=== PATIENT | male | born 1980 ===

== ENCOUNTER 2016-09-29 09:56 | Observation (INO) | payer MEDICAID, OTHER ==
[2016-09-29] MEDS ORDERED: Iohexol 240 (50 ml) PO STA (10:56)
--- NOTE | 2016-09-29 11:12 | C.PDOC ---
History Of Present Illness 36 y/o male presents to ED with complaints of RUQ pain for 2 days. Patient had a Hernia Surgery 2 years ago and had no discomfort until 2 days ago. Patient reports associated N/V/D and pain worsen after eating. Patient denies fever, chills, cp, sob, urinary symptoms or any other complaints. Time Seen by Provider: 09/29/16 10:07 Chief Complaint (Nursing): Abdominal Pain History Per: Patient History/Exam Limitations: no limitations Onset/Duration Of Symptoms: Days Current Symptoms Are (Timing): Still Present Location Of Pain/Discomfort: RUQ Associated Symptoms: Nausea, Vomiting, Diarrhea. denies: Fever, Chills Exacerbating Factors: Food Past Medical History Reviewed: Historical Data, Nursing Documentation, Vital Signs Vital Signs: Last Vital Signs Temp 98.2 F 09/29/16 15:23 Pulse 80 09/29/16 15:23 Resp 16 09/29/16 15:23 BP 128/70 09/29/16 15:23 Pulse Ox 100 09/29/16 15:23 - Medical History PMH: No Chronic Diseases Other Surgeries: hernia surgery Family History: States: No Known Family Hx - Social History Hx Alcohol Use: No Hx Substance Use: No - Immunization History Hx Tetanus Toxoid Vaccination: No Hx Influenza Vaccination: No Hx Pneumococcal Vaccination: No Review Of Systems Except As Marked, All Systems Reviewed And Found Negative. Constitutional: Negative for: Fever, Chills Cardiovascular: Negative for: Chest Pain Respiratory: Negative for: Shortness of Breath Gastrointestinal: Positive for: Nausea, Vomiting, Abdominal Pain, Diarrhea Genitourinary: Negative for: Dysuria, Frequency Musculoskeletal: Negative for: Back Pain Skin: Negative for: Rash Physical Exam - Physical Exam Appears: Non-toxic, No Acute Distress Skin: Normal Color, Warm Head: Atraumatic, Normacephalic Eye(s): bilateral: Normal Inspection Oral Mucosa: Moist Neck: Normal ROM, Supple Cardiovascular: Rhythm Regular, No Murmur Respiratory: Normal Breath Sounds, No Rales, No Rhonchi, No Wheezing Gastrointestinal/Abdominal: Soft, Tenderness (RUQ Mild Tenderness), No Guarding , No Rebound, Other (Healed surgical scars to the mid abdomen) Back: No CVA Tenderness Extremity: Normal ROM, Capillary Refill (<2 seconds), No Swelling Neurological/Psych: Oriented x3, Normal Speech, Normal Motor Gait: Steady ED Course And Treatment - Laboratory Results Result Diagrams: 09/29/16 11:30 09/29/16 11:30 O2 Sat by Pulse Oximetry: 95 (RA) Pulse Ox Interpretation: Normal ED OBSERVATION Discharge: Yes Date of observation admission: 09/29/16 Time of observation admission: 11:30 - Observation admission statement Patient is being placed in observation because:: abdominal pain and r/o incarcerated hernia - Goals of Observation Goals of observation are:: monitoring and r/o acute abdomen - Progress Note Progress Note: 09/29/16 12:24 On re-exam, the patient is resting comfortably. Abdomen feels better. Abdomen remains soft with normal bowel sounds. 09/29/16 15:07 CT scan reveals colitis. Results were discussed with the patient. On re-exam, the patient reports improvement of symptoms. Lungs are CTA, heart is RRR, abdomen is soft, non-tender and patient is tolerating Porter. Ambulatory in the ED with steady gait. Follow up with the medical doctor within 1-2 days. Return if worsened. 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 - Scribe Statement The provider has reviewed the documentation as recorded by the Joseph Mejia All medical record entries made by the Joseph were at my direction and personally dictated by me. I have reviewed the chart and agree that the record accurately reflects my personal performance of the history, physical exam, medical decision making, and the department course for this patient. I have also personally directed, reviewed, and agree with the discharge instructions and disposition.
[2016-09-29] MEDS ORDERED: Iohexol 240 (50 ml) ONE (11:14)
[2016-09-29] MEDS ORDERED: Sodium Chloride 0.9% 1,000 ML ONE (11:15)
[2016-09-29 11:33] LABS: BASO # 0.1 K/uL (0.0-0.2); BASO % 1.1 % (0.0-2.0); EOS # 0.1 K/uL (0.0-0.7); EOS % 0.8 % (0.0-4.0); HEMATOCRIT 45.6 % (35.0-51.0); LYMPH # 2.1 K/uL (1.0-4.3); LYMPH % 22.1 % (20.0-40.0); MEAN CELL VOLUME 89.7 fL (80.0-94.0); MEAN CORPUSCULAR HEMOGLOBIN 29.1 pg (27.0-31.0); MEAN CORPUSCULAR HGB CONC 32.5 g/dL (33.0-37.0); MEAN PLATELET VOLUME 7.7 fL (7.2-11.7); MONO # 1.3 K/uL (0.0-0.8); MONO % 13.7 % (0.0-10.0); NRBC % 0.1 % (0.0-2.0); RED CELL DISTRIBUTION WIDTH 14.5 % (11.5-14.5); WHITE BLOOD COUNT 9.5 K/uL (4.8-10.8)
[2016-09-29 11:41] LABS: CHLORIDE 107 mmol/L (98-107)
[2016-09-29 11:42] LABS: POTASSIUM 4.4 mmol/L (3.6-5.2); SODIUM 142 mmol/L (132-148)
[2016-09-29 11:44] LABS: AST/SGOT 31 U/L (17-59); BILIRUBIN,TOTAL 0.5 mg/dL (0.2-1.3); CARBON DIOXIDE 26 mmol/L (22-30); GFR AFRICAN-AMERICAN > 60; TOTAL PROTEIN 7.7 g/dL (6.3-8.3)
[2016-09-29 11:45] LABS: ALKALINE PHOSPHATASE 85 U/L (38-126); ALT/SGPT 27 U/L (21-72); BLOOD UREA NITROGEN 11 mg/dL (9-20); CALCIUM 8.6 mg/dl (8.6-10.4); GLUCOSE,RANDOM 89 mg/dL (75-110)
[2016-09-29] MEDS ORDERED: Iodixanol 320 MG/ML 100 ML BOTTLE IV ONE (13:47)
--- NOTE | 2016-09-29 14:43 | CT ---
PROCEDURE: CT scan abdomen and pelvis dated 09/29/2016 HISTORY: abd pain COMPARISON: None. TECHNIQUE: Contiguous axial images of the abdomen and pelvis performed following oral and intravenous injection of approximately 100 cc Visipaque 320 contrast material. . Additional 2 dimensional sagittal and coronal reformats generated. Radiation dose: Total exam DLP = 1132.68 mGy-cm. This CT exam was performed using one or more of the following dose reduction techniques: Automated exposure control, adjustment of the mA and/or kV according to patient size, and/or use of iterative reconstruction technique. FINDINGS: LOWER THORAX: The spleen is diminutive and LIVER: Liver is upper limits of normal measuring nearly 18 cm in CC dimension. Mild fatty hepatic infiltration. GALLBLADDER AND BILE DUCTS: Unremarkable. PANCREAS: Visualized portions of the pancreas appear grossly unremarkable without mass collection or calcification. No significant pancreatic ductal dilatation. SPLEEN: Spleen is somewhat diminutive and this exhibits a lobular/nodular contour nonspecific. ADRENALS: Unremarkable. KIDNEYS AND URETERS: Kidneys exhibit relatively symmetric nephrograms. No evidence of nephrolithiasis or hydronephrosis. No obvious renal mass or collection. . BLADDER: Urinary bladder is incompletely distended which may in part account for slight thick-walled appearance. . Muscular hypertrophy may contribute. REPRODUCTIVE: Few tiny scattered densities throughout the prostate gland may represent early calcification formation. . APPENDIX: Normal-appearing appendix best seen on axial image number [id number]. No periappendiceal inflammatory changes. BOWEL: Evaluation of the bowel is limited due to incomplete opacification. As mentioned above, there is small hiatal hernia. Slight wall thickening of the distal esophagus likely due to protrusion of gastric mucosa. Esophagitis not excluded. Stomach is distended with oral contrast material. Visualized loops of small bowel exhibit normal contour and caliber. No evidence acute mechanical small bowel obstruction. Oral contrast material has extended into the colon to the level of the mid proximal/mid descending colon. There is mild wall thickening of the two ileum. . There appears to be mild wall thickening of the distal ascending, transverse and good portion of the descending colon suggesting a nonspecific colitis. Clinical correlation is recommended. No evidence of free intraperitoneal air. Appears to be a few scattered colonic diverticula as well along descending and proximal sigmoid colon. PERITONEUM: Unremarkable. No fluid collection. No free air. LYMPH NODES: There are multiple small retroperitoneal lymph nodes nonspecific. VASCULATURE: No evidence of abdominal aortic aneurysm BONES: Minor multilevel degenerative spondylosis of the lower thoracic and lumbar spine. OTHER FINDINGS: None. IMPRESSION: Impression: Findings are consistent with mild diffuse colitis nonspecific however rule out inflammatory versus infectious etiology. No evidence of acute appendicitis. Borderline hepatomegaly with mild fatty hepatic infiltration. Findings discussed with emergency room MICHELLE Funes at approximately 2:39 a.m. with written down and read back verification. Spleen is diminutive in size with somewhat lobulated nodular contour. The finding is of uncertain etiology though could represent developmental abnormality however rule out sequela of ischemia, old trauma or infection. There are multiple small retroperitoneal lymph nodes nonspecific.
[2016-09-29 15:24] VITALS: BP 128/70; PULSE 80; RESP 16; TEMP 98.2
[2016-09-29 17:07] VITALS: O2SAT 95
== END 2016-09-29 15:10 | disposition home or self-care (01) ==
LOC: C.ER 09:56 → C.9OBSV 12:23
PROVIDERS: ADMIT Student in an Organized Health Care Education/Training Program; ATTEND Student in an Organized Health Care Education/Training Program
DX: K52.9 Noninfective gastroenteritis and colitis, unspecified (principal)
CPT/HCPCS: 74177; 80053; 83690; 85025; 96374; 99285; G0378; J1885; J2270; J2405; Q9966; Q9967

== ENCOUNTER 2017-04-18 23:58 | Inpatient (IN) | payer MEDICAID, OTHER ==
--- NOTE | 2017-04-19 01:05 | C.PDOC ---
History Of Present Illness pt presents with diffuse chest wall pain, worsening with movement and deep inspiration since around 12-1 pm. denies any trauma., Speaking in complete sentences. Dull, aching pain. No f/c/n/v Time Seen by Provider: 04/19/17 01:05 Chief Complaint (Nursing): Chest Pain History Per: Patient, Family History/Exam Limitations: no limitations Onset/Duration Of Symptoms: Hrs (12), Waxing/Waning Current Symptoms Are (Timing): Still Present Context: Other Severity: Moderate Pain Scale Rating Of: 5 Quality: Burning, Aching Associated Symptoms: denies: Nausea, Dyspnea Exacerbating Factors: Turning, Movement, Deep Breathing Alleviating Factors: None Recent travel outside of the [place]: No Additional History Per: Family Past Medical History Reviewed: Historical Data, Nursing Documentation, Vital Signs Vital Signs: Last Vital Signs Temp 98.6 F 04/19/17 02:58 Pulse 96 H 04/19/17 03:20 Resp 16 04/19/17 03:20 BP 133/58 L 04/19/17 03:20 Pulse Ox 95 04/19/17 03:20 - Medical History PMH: HTN Family History: States: No Known Family Hx - Social History Hx Alcohol Use: Yes Hx Substance Use: No - Immunization History Hx Tetanus Toxoid Vaccination: No Hx Influenza Vaccination: No Hx Pneumococcal Vaccination: No Review Of Systems Eyes: Negative for: Redness ENT: Negative for: Throat Pain Cardiovascular: Positive for: Chest Pain. Negative for: Edema Respiratory: Positive for: Pleuritic Pain. Negative for: Shortness of Breath Gastrointestinal: Negative for: Nausea, Vomiting Genitourinary: Negative for: Dysuria Musculoskeletal: Negative for: Back Pain Skin: Negative for: Rash Neurological: Negative for: Weakness Psych: Negative for: Anxiety Physical Exam - Physical Exam Appears: Non-toxic, No Acute Distress Skin: Warm, Dry Head: Normacephalic Eye(s): bilateral: Normal Inspection Oral Mucosa: Moist Neck: Supple Chest: Symmetrical, Tenderness (diffuse), No Subcutaneous Emphysema Cardiovascular: Rhythm Regular Respiratory: No Rales, No Rhonchi, No Wheezing Gastrointestinal/Abdominal: Soft, No Tenderness, No Distention Back: No CVA Tenderness Extremity: Normal ROM Extremity: Bilateral: Atraumatic Pulses: Left Dorsalis Pedis: Normal, Right Dorsalis Pedis: Normal Neurological/Psych: Oriented x3, Normal Speech, Normal Cognition Gait: Steady ED Course And Treatment - Laboratory Results Result Diagrams: 04/19/17 01:10 04/19/17 01:10 ECG: Interpreted By Me, Viewed By Me (90) ECG Rhythm: Nonspecific Changes O2 Sat by Pulse Oximetry: 97 Pulse Ox Interpretation: Normal - Radiology CXR: Interpreted by Me, Viewed By Me Disposition Discussed With Dr.: Crescencio Ruiz Comment: accepted the pt on his service and took over the care at 4:57 AM Doctor Will See Patient In The: ED Counseled Patient/Family Regarding: Studies Performed, Diagnosis - Disposition Disposition: HOSPITALIZED Disposition Time: 01:05 Condition: GUARDED Forms: [facility] (Croatian) - POA Present On Arrival: None - Clinical Impression Clinical Impression: Pleuritic pain, Dyspnea, Pneumonia Decision To Admit - Pt Status Changed To: Hospital Disposition Of: Inpatient - Admit Certification Admit to Inpatient:: After my assessment, the patient will require hospitalization for at least two midnights. This is because of the severity of symptoms shown, intensity of services needed, and/or the medical risk in this patient being treated as an outpatient. - InPatient: Physician Admission Certification: I certify that this patient requires 2 or more midnights of care for the following reason:: After my assessment, the patient will require hospitalization for at least two midnights. This is because of the severity of symptoms shown, intensity of services needed, and/or the medical risk in this patient being treated as an outpatient. - . Bed Request Type: Regular Admitting Physician: Crescencio Ruiz Patient Diagnosis: Pleuritic pain, Dyspnea, Pneumonia
[2017-04-19] MEDS ORDERED: Aspirin 325 mg EC Tablets PO STA (01:06)
[2017-04-19] MEDS ORDERED: Aspirin 325 mg EC Tablets PO ONE (01:15)
[2017-04-19 01:17] LABS: BASO # 0.1 K/uL (0.0-0.2); BASO % 0.9 % (0.0-2.0); EOS # 0.1 K/uL (0.0-0.7); EOS % 0.4 % (0.0-4.0); HEMOGLOBIN 14.3 g/dL (12.0-18.0); LYMPH # 2.3 K/uL (1.0-4.3); LYMPH % 18.6 % (20.0-40.0); MEAN CELL VOLUME 87.3 fL (80.0-94.0); MEAN CORPUSCULAR HGB CONC 33.2 g/dL (33.0-37.0); MEAN PLATELET VOLUME 8.3 fL (7.2-11.7); MONO # 1.7 K/uL (0.0-0.8); MONO % 13.9 % (0.0-10.0); NEUT % 66.2 % (50.0-75.0); RBC 4.94 Mil/uL (4.40-5.90); RED CELL DISTRIBUTION WIDTH 13.8 % (11.5-14.5); URINE BILIRUBIN NEGATIVE (NEGATIVE); URINE BLOOD NEGATIVE (NEGATIVE); URINE CLARITY Clear (Clear); URINE COLOR Yellow (YELLOW); URINE GLUCOSE (UA) NORMAL (Normal); URINE LEUKOCYTE ESTERASE NEG Leu/uL (Negative); URINE NITRATE NEGATIVE (NEGATIVE); URINE PROTEIN NEGATIVE (NEGATIVE); URINE UROBILINOGEN NORMAL mg/dL (0.2-1.0); WHITE BLOOD COUNT 12.1 K/uL (4.8-10.8)
[2017-04-19 01:21] LABS: INR 1.1; PROTHROMBIN TIME 11.9 SECONDS (9.7-12.2)
[2017-04-19 01:28] LABS: ALBUMIN 4.2 g/dL (3.5-5.0); ALT/SGPT 26 U/L (21-72); AST/SGOT 25 U/L (17-59); BLOOD UREA NITROGEN 9 mg/dL (9-20); CALCIUM 8.3 mg/dl (8.6-10.4); GFR AFRICAN-AMERICAN > 60; GFR NON-AFRICAN AMERICAN > 60
[2017-04-19] MEDS ORDERED: Piperacillin/Tazobact 3.375 GM in Sodium Chloride 100 ML IVPB STA (02:24)
[2017-04-19] MEDS ORDERED: Piperacill/Tazo 3.375gm in Dex 3.375 GM/50 ML BAG IVPB STA (02:39)
--- NOTE | 2017-04-19 04:05 | CT ---
EXAM: CT Chest Without Intravenous Contrast EXAM DATE/TIME: 04/19/2017 2:24 AM CLINICAL HISTORY: 36 years old, male; Pain; Chest pain; Additional info: Chest pain, SOB, infiltrates TECHNIQUE: Axial computed tomography images of the chest without intravenous contrast. All CT scans at this facility use one or more dose reduction techniques, viz.: automated exposure control; ma/kV adjustment per patient size (including targeted exams where dose is matched to indication; i.e. head); or iterative reconstruction technique. Coronal and sagittal reformatted images were created and reviewed. COMPARISON: No relevant prior studies available. FINDINGS: No aortic aneurysm. Multiple mediastinal lymph nodes some of which are borderline prominent. Lack of intravenous contrast is limiting. There are moderate sized areas of consolidation with irregular borders in the lung apices (image 32), greater on the right. There are numerous small scattered spiculated nodules throughout the lungs, most notably in the right upper lung, the majority of which are peripherally located. There are pleural based areas of consolidation in the posterior lower lungs (right image 48, left image 58). Areas of platelike atelectasis / scarring are noted in the lower lungs. No effusions. IMPRESSION: Bilateral upper and lower lung consolidation with irregular borders. Spiculated nodules as discussed above. Inflammatory, infectious, and neoplastic etiologies would all be possible. Further workup is recommended. Lack of intravenous contrast is limiting.If there are prior studies, I would be happy to correlate them.
--- NOTE | 2017-04-19 06:23 | CP.PCM.HP ---
<Art Shine - Last Filed: 04/19/17 08:08> History of Present Illness - History of Present Illness History of Present Illness: PGY-1 H&P for Dr. Ruiz CC: Chest pain This is a 36 year old male with PMHx pneumonia who presents to the ED complaining of chest pain. This began yesterday around 1 PM. This was a sudden onset of stabbing type pain located in the mid sternal region that radiates directly through to the back. Patient states that this is worsened with breathing. Drinking hot substances like tea seems to ease the pain. It is not related to meals. When asked about relation to positioning, the patient states that when he experiences the pain, it feels a little better if he lays down. Patient admits associated diaphoresis and left arm numbness. Denies palpitations. Patient was diagnosed with pneumonia 2 years ago. On that hospital admission, he received a stress test which he was told was normal. Of note, patient was sick during the past 2 weeks with cough and sputum which has improved since then with over the counter medications. His was also sick recently as well. PMHx: Pneumonia 2 years ago PSHx Ventral hernia repair in 2011, left eye surgery at age 9 due to trauma Allergies: NKDA Social: Started smoking 3 years ago has cut down to 2-3 cigarettes per day. Drinks about a pint of cognac every week on Fridays. Denies drug use. 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 Lives with . Family Hx: Father in his 50s due to pneumonia. Mother had CAD with 2 surgeries in her old age. PMD:denies Home meds: denies Present on Admission - Present on Admission Any Indicators Present on Admission: No Review of Systems - Constitutional Constitutional: absent: Chills, Fever - EENT Eyes: absent: Change in Vision Ears: absent: Decreased Hearing Nose/Mouth/Throat: absent: Nasal Congestion - Cardiovascular Cardiovascular: Chest Pain, Diaphoresis, Dyspnea. absent: Palpitations, Paroxysmal Nocturnal Dyspnea - Respiratory Respiratory: Cough, Dyspnea - Gastrointestinal Gastrointestinal: absent: Abdominal Pain, Constipation, Diarrhea, Nausea, Vomiting - Genitourinary Genitourinary: absent: Dysuria - Musculoskeletal Musculoskeletal: Back Pain (thoracic back pain that radiates from the chest) - Integumentary Integumentary: absent: Rash - Neurological Neurological: absent: Dizziness, Weakness - Psychiatric Psychiatric: absent: Anxiety - Endocrine Endocrine: absent: Palpitations Past Patient History - Past Social History Smoking Status: Current Some Days Smoker - CARDIAC Hx Hypertension: Yes - GASTROINTESTINAL Other/Comment: abd hernia - PSYCHIATRIC Hx Substance Use: No - SURGICAL HISTORY Other/Comment: hernia repair - ANESTHESIA Hx Anesthesia: Yes Hx Anesthesia Reactions: Yes Hx Malignant Hyperthermia: No Meds Allergies/Adverse Reactions: Allergies Allergy/AdvReac Type Severity Reaction Status Date / Time No Known Allergies Allergy Verified 09/29/16 10:08 Physical Exam - Constitutional Appears: No Acute Distress - Head Exam Head Exam: ATRAUMATIC, NORMOCEPHALIC - Eye Exam Eye Exam: EOMI Pupil Exam: Miosis (left eye. Hx of surgery), PERRL (right eye only) - ENT Exam ENT Exam: Mucous Membranes Moist - Respiratory Exam Respiratory Exam: Clear to Auscultation Bilateral. absent: Rales, Rhonchi, Wheezes - Cardiovascular Exam Cardiovascular Exam: REGULAR RHYTHM, +S1, +S2 Additional comments: Pain improved with leaning forward on physical exam. - GI/Abdominal Exam GI & Abdominal Exam: Normal Bowel Sounds, Soft. absent: Distended, Tenderness - Extremities Exam Extremities exam: Positive for: pedal pulses present. Negative for: pedal edema , tenderness - Back Exam Additional comments: Tenderness along the thoracic region primarily localized on the left but there was still some tenderness centrally - Neurological Exam Neurological exam: Alert, CN II-XII Intact, Oriented x3 - Psychiatric Exam Psychiatric exam: Normal Affect, Normal Mood - Skin Skin Exam: Dry, Warm Results - Vital Signs Recent Vital Signs: Last Vital Signs Temp 98.6 F 04/19/17 02:58 Pulse 73 04/19/17 05:11 Resp 22 04/19/17 05:11 BP 114/63 04/19/17 05:11 Pulse Ox 94 L 04/19/17 05:11 - Labs Result Diagrams: 04/19/17 01:10 04/19/17 01:10 Labs: Laboratory Results - last 24 hr 04/19/17 04/19/17 04/19/17 01:10 01:10 01:10 WBC 12.1 H RBC 4.94 Hgb 14.3 Hct 43.1 MCV 87.3 D MCH 29.0 MCHC 33.2 RDW 13.8 Plt Count 338 MPV 8.3 Neut % (Auto) 66.2 Lymph % (Auto) 18.6 L [place] % (Auto) 13.9 H Eos % (Auto) 0.4 Baso % (Auto) 0.9 Neut # 8.0 H Lymph # 2.3 [place]o # 1.7 H Eos # 0.1 Baso # 0.1 PT 11.9 INR 1.1 APTT 30 Sodium Potassium Chloride Carbon Dioxide Anion Gap BUN Creatinine Est GFR ( Amer) Est GFR (Non-Af Amer) Random Glucose Calcium Total Bilirubin AST ALT Alkaline Phosphatase Troponin I Total Protein Albumin Globulin Albumin/Globulin Ratio Urine Color Yellow Urine Clarity Clear Urine pH 5.0 Ur Specific [place] 1.017 Urine Protein Negative Urine Glucose (UA) Normal Urine Ketones Negative Urine Blood Negative Urine Nitrate Negative Urine Bilirubin Negative Urine Urobilinogen Normal Ur Leukocyte Esterase Neg Urine WBC (Auto) 1 Urine RBC (Auto) < 1 04/19/17 01:10 WBC RBC Hgb Hct MCV MCH MCHC RDW Plt Count MPV Neut % (Auto) Lymph % (Auto) [place] % (Auto) Eos % (Auto) Baso % (Auto) Neut # Lymph # [place] # Eos # Baso # PT INR APTT Sodium 133 Potassium 3.6 Chloride 100 Carbon Dioxide 24 Anion Gap 12 BUN 9 Creatinine 1.2 Est GFR ( Amer) > 60 Est GFR (Non-Af Amer) > 60 Random Glucose 101 Calcium 8.3 L Total Bilirubin 0.6 AST 25 ALT 26 Alkaline Phosphatase 68 Troponin I < 0.0120 Total Protein 8.4 H Albumin 4.2 Globulin 4.2 H Albumin/Globulin Ratio 1.0 Urine Color Urine Clarity Urine pH Ur Specific [place] Urine Protein Urine Glucose (UA) Urine Ketones Urine Blood Urine Nitrate Urine Bilirubin Urine Urobilinogen Ur Leukocyte Esterase Urine WBC (Auto) Urine RBC (Auto) Assessment & Plan - Assessment and Plan (Free Text) Plan: Chest Pain Likely pericarditis secondary to findings on EKG and clinical exam as well as the fact that he felt better with Toradol. EKG showed some ST elevations diffusely. Clinical exam demonstrated some improvement in pain when the patient bent forward. Cannot exclude the possibility of pneumonia vs neoplasm CT chest showed multiple lung nodules. Will require outpatient follow up with repeat CT scan in 4 weeks or bronchoscopy. Pulm consult Dr. Sharpe, help appreciated Rocephin 1 gm IV daily Doxycycline 100 mg PO BID Toradol 30 mg IV Q6H prn severe pain f/u blood cultures f/u sputum cultures f/u Echo scheduled for Sunday to assess for possibility of pericardial effusion improving Prophylactic Measure Heart Healthy Diet Protonix 40 mg PO daily SCDs Case DW Dr. Joseph Shine PGY-1 <Crescencio Ruiz P - Last Filed: 04/21/17 20:02> Results - Vital Signs Recent Vital Signs: Last Vital Signs Temp 97.5 F L 04/21/17 16:00 Pulse 69 04/21/17 16:00 Resp 20 04/21/17 16:00 BP 136/81 04/21/17 16:00 Pulse Ox 99 04/21/17 16:00 - Labs Result Diagrams: 04/21/17 07:04 04/21/17 07:04 Labs: Laboratory Results - last 24 hr 04/21/17 04/21/17 07:04 07:04 WBC 9.9 RBC 4.61 Hgb 13.6 Hct 40.4 MCV 87.7 MCH 29.5 MCHC 33.7 RDW 14.1 Plt Count 334 MPV 8.5 Neut % (Auto) 60.6 Lymph % (Auto) 25.5 [place] % (Auto) 11.9 H Eos % (Auto) 1.1 Baso % (Auto) 0.9 Neut # 6.0 Lymph # 2.5 [place] # 1.2 H Eos # 0.1 Baso # 0.1 Sodium 133 Potassium 3.5 L Chloride 101 Carbon Dioxide 24 Anion Gap 11 BUN 12 Creatinine 1.0 Est GFR ( Amer) > 60 Est GFR (Non-Af Amer) > 60 Random Glucose 138 H Calcium 8.2 L Phosphorus 3.6 Magnesium 1.9 Total Bilirubin 0.4 AST 58 ALT 43 Alkaline Phosphatase 78 Total Protein 7.3 Albumin 3.6 Globulin 3.7 Albumin/Globulin Ratio 1.0 Attending/Attestation - Attestation I have personally seen and examined this patient.: Yes I have fully participated in the care of the patient.: Yes I have reviewed all pertinent clinical information: Yes Notes (Text): Multilobar infiltrate after initial viral picture with sick partner as well, chest pain likely pericardial origin, left back pain pleuritic, chest ct finding have dd of infiltrate, secondary lymph nodes vs nodular lung disease, or sarcoidosis. Patient will need f/u echo to look any progression in pericardial fluid, about 4wk after f/u ct, for lung findings to resolve, pulmonary consult. Empiric treatment with rocephin, and doxycycline, pain control with toradol, gi/dvt prophylaxis. See orders for details.
--- NOTE | 2017-04-19 08:39 | RAD ---
Chest x-ray single frontal view History: Chest pain. Comparison: None available. Findings: Diffuse confluent patchy bilateral airspace opacities may represent underlying infiltrate or edema. Venous congestion. Cardiomegaly. Degenerative changes in the spine and shoulders. Impression: Diffuse confluent patchy bilateral airspace opacities may represent underlying infiltrate or edema. Venous congestion. Cardiomegaly.
[2017-04-19] MEDS: Pantoprazole 40 mg EC Tab PO SCH (10:21)
--- NOTE | 2017-04-19 14:38 | CP.PCM.PN ---
Subjective - Date & Time of Evaluation Date of Evaluation: 04/19/17 Time of Evaluation: 07:00 - Subjective Subjective: PGY1- Medicine Note- Dr. Johnston's Service Patient seen and examined at bedside and in no acute distress. Patient still having chest pain that increases with movement and deep inspiration and decreases with rest. Patient says the chest pain is decreasing. Patient also admits to a cough. Patient denies any fevers, shortness of breath, abdominal pain, nausea, vomiting, constipation, or diarrhea. Objective - Vital Signs/Intake and Output Vital Signs (last 24 hours): Temp Pulse Resp BP Pulse Ox 97.8 F 65 20 116/62 97 04/19/17 06:27 04/19/17 10:20 04/19/17 10:20 04/19/17 10:20 04/19/17 10:20 - Medications Medications: Current Medications Heparin Sodium (Porcine) (Heparin) 5,000 units SC Q8 [facility] Ceftriaxone Sodium 1 gm/ (Sodium Chloride) 100 mls @ 100 mls/hr IVPB Q24H [facility] Azithromycin 500 mg/ Sodium (Chloride) 250 mls @ 250 mls/hr IVPB DAILY [facility] Ketorolac Tromethamine (Toradol) 30 mg IVP Q6 PRN PRN Reason: Pain, severe (8-10) Last Admin: 04/19/17 10:21 Dose: 30 mg Pantoprazole Sodium (Protonix Ec Tab) 40 mg PO DAILY [facility] Last Admin: 04/19/17 10:21 Dose: 40 mg Tuberculin PPD (Tubersol) 5 tu ID DAILY@ONCE ONE Stop: 04/19/17 14:31 - Labs Labs: 04/19/17 01:10 04/19/17 01:10 PT 11.9 SECONDS (9.7-12.2) 04/19/17 01:10 INR 1.1 04/19/17 01:10 APTT 30 SECONDS (21-34) 04/19/17 01:10 - Constitutional Appears: Non-toxic, No Acute Distress - Head Exam Head Exam: ATRAUMATIC, NORMAL INSPECTION, NORMOCEPHALIC - Eye Exam Eye Exam: EOMI, Normal appearance - ENT Exam ENT Exam: Mucous Membranes Moist - Respiratory Exam Respiratory Exam: Clear to Ausculation Bilateral, NORMAL BREATHING PATTERN. absent: Rales, Rhonchi, Wheezes, Respiratory Distress, Stridor - Cardiovascular Exam Cardiovascular Exam: REGULAR RHYTHM, RRR, +S1, +S2 - GI/Abdominal Exam GI & Abdominal Exam: Soft, Normal Bowel Sounds. absent: Tenderness - Extremities Exam Extremities Exam: Full ROM, Normal Inspection. absent: Pedal Edema - Neurological Exam Neurological Exam: Alert, Awake, Oriented x3 - Psychiatric Exam Psychiatric exam: Normal Affect, Normal Mood - Skin Skin Exam: Intact, Normal Color, Warm Assessment and Plan - Assessment and Plan (Free Text) Assessment: Chest Pain Likely secondary to pneumonia EKG NSR @ 90 bpm First Troponin I negative Cxray: diffuse confluent patchy b/l airspace opacities may represent underlying infiltrate or edema, venous congestion, cardiomegaly Chest CT: b/l upper and lower lung consolidation with irregular borders, spiculated nodules. inflammatory, infectious, and neoplastic etiologies all possible Pulm consult Dr. Sharpe, help appreciated Rocephin 1 gm IV daily Azithromycin 500mg ivpb daily Toradol 30 mg IV Q6H prn severe pain f/u blood cultures f/u sputum cultures f/u Echo f/u ESR f/u Trop x 2 Leukocytosis WBC: 12.1, continue antibiotics monitor Prophylactic Measure Heart Healthy Diet Protonix 40 mg PO daily SCDs, Heparin 5000 u sc q8h
[2017-04-19] MEDS ORDERED: Tuberculin 5 Units/0.1 ml Inj ID ONE (16:00)
[2017-04-19 16:29] LABS: CK-MB 1.38 ng/mL (0.0-3.38)
[2017-04-19 19:02] VITALS: RESP 20
[2017-04-19 21:48] LABS: CK-MB 1.71 ng/mL (0.0-3.38)
--- NOTE | 2017-04-20 05:58 | CP.PCM.PN ---
Subjective - Date & Time of Evaluation Date of Evaluation: 04/20/17 Time of Evaluation: 07:00 - Subjective Subjective: PGY1- Medicine Note- Dr. Johnston's Service Patient seen and examined at bedside and in no acute distress. Patient says he still has chest pain but it has decreased to 5/10 and only hurts when coughing or taking deep breaths. Patient denies any fevers, shortness of breath, abdominal pain, nausea, vomiting, constipation, or diarrhea. Objective - Vital Signs/Intake and Output Vital Signs (last 24 hours): Temp Pulse Resp BP Pulse Ox 98.9 F 79 20 133/74 97 04/19/17 23:20 04/19/17 23:20 04/19/17 23:20 04/19/17 23:20 04/19/17 23:20 - Medications Medications: Current Medications Heparin Sodium (Porcine) (Heparin) 5,000 units SC Q8 [facility] Last Admin: 04/19/17 21:26 Dose: 5,000 units Ceftriaxone Sodium 1 gm/ (Sodium Chloride) 100 mls @ 100 mls/hr IVPB Q24H [facility] Last Admin: 04/19/17 14:00 Dose: 100 mls/hr Azithromycin 500 mg/ Sodium (Chloride) 250 mls @ 250 mls/hr IVPB DAILY [facility] Ketorolac Tromethamine (Toradol) 30 mg IVP Q6 PRN PRN Reason: Pain, severe (8-10) Last Admin: 04/19/17 21:25 Dose: 30 mg Pantoprazole Sodium (Protonix Ec Tab) 40 mg PO DAILY [facility] Last Admin: 04/19/17 10:21 Dose: 40 mg Pneumococcal Polyvalent Vaccine (Pneumovax 23 Vaccine) 0.5 ml IM .ONCE ONE Stop: 04/21/17 22:01 - Labs Labs: 04/19/17 01:10 04/19/17 01:10 PT 11.9 SECONDS (9.7-12.2) 04/19/17 01:10 INR 1.1 04/19/17 01:10 APTT 30 SECONDS (21-34) 04/19/17 01:10 - Additional Findings Additional findings: - Constitutional Appears: Non-toxic, No Acute Distress - Head Exam Head Exam: ATRAUMATIC, NORMAL INSPECTION, NORMOCEPHALIC - Eye Exam Eye Exam: EOMI, Normal appearance - ENT Exam ENT Exam: Mucous Membranes Moist - Respiratory Exam Respiratory Exam: Clear to Ausculation Bilateral, NORMAL BREATHING PATTERN. absent: Rales, Rhonchi, Wheezes, Respiratory Distress, Stridor - Cardiovascular Exam Cardiovascular Exam: REGULAR RHYTHM, RRR, +S1, +S2 - GI/Abdominal Exam GI & Abdominal Exam: Soft, Normal Bowel Sounds. absent: Tenderness - Extremities Exam Extremities Exam: Full ROM, Normal Inspection. absent: Pedal Edema - Neurological Exam Neurological Exam: Alert, Awake, Oriented x3 - Psychiatric Exam Psychiatric exam: Normal Affect, Normal Mood - Skin Skin Exam: Intact, Normal Color, Warm Assessment and Plan - Assessment and Plan (Free Text) Assessment: Chest Pain Likely secondary to pneumonia EKG NSR @ 90 bpm Troponin x3 negative Cxray: diffuse confluent patchy b/l airspace opacities may represent underlying infiltrate or edema, venous congestion, cardiomegaly Chest CT: b/l upper and lower lung consolidation with irregular borders, spiculated nodules. inflammatory, infectious, and neoplastic etiologies all possible CTA: no evidence for acute PE, multifocal confluent airspace disease in both upper lobes with striated margins, multiple peripheral nodules with irregular margins and mediastinal and hilar lymphadenopathy, trace pericardial effusion Pulm consult Dr. Sharpe, help appreciated Rocephin 1 gm IV daily Azithromycin 500mg ivpb daily Toradol 30 mg IV Q6H prn severe pain D Dimer- 520 rapid flu: neg grp a strep: negative f/u mycoplasma, legionella HIV: negative blood cultures- no growth after 24 hours f/u sputum cultures- gram positive cocci in chains f/u Echo ESR: 40 f/u ppd Leukocytosis WBC decreased to 10.8 from 12.1 continue antibiotics monitor Prophylactic Measure Heart Healthy Diet Protonix 40 mg PO daily [facility]CDs, Heparin 5000 u sc q8h
[2017-04-20 07:34] LABS: BASO # 0.1 K/uL (0.0-0.2); BASO % 0.8 % (0.0-2.0); EOS # 0.1 K/uL (0.0-0.7); EOS % 0.9 % (0.0-4.0); HEMOGLOBIN 13.4 g/dL (12.0-18.0); LYMPH % 18.5 % (20.0-40.0); MEAN CELL VOLUME 87.7 fL (80.0-94.0); MEAN CORPUSCULAR HEMOGLOBIN 29.1 pg (27.0-31.0); MEAN CORPUSCULAR HGB CONC 33.2 g/dL (33.0-37.0); MEAN PLATELET VOLUME 8.6 fL (7.2-11.7); MONO # 1.7 K/uL (0.0-0.8); MONO % 15.7 % (0.0-10.0); NEUT # 6.9 K/uL (1.8-7.0); NEUT % 64.1 % (50.0-75.0); NRBC % 0.1 % (0.0-2.0); RBC 4.61 Mil/uL (4.40-5.90); WHITE BLOOD COUNT 10.8 K/uL (4.8-10.8)
[2017-04-20 07:40] LABS: ALB/GLOB RATIO 0.9 (1.0-2.1); ALBUMIN 3.5 g/dL (3.5-5.0); ALT/SGPT 21 U/L (21-72); AST/SGOT 23 U/L (17-59); BLOOD UREA NITROGEN 17 mg/dL (9-20); CALCIUM 8.3 mg/dl (8.6-10.4); GFR AFRICAN-AMERICAN > 60; GFR NON-AFRICAN AMERICAN > 60
[2017-04-20] MEDS ORDERED: Iodixanol 320 MG/ML 100 ML BOTTLE IV ONE (09:43)
[2017-04-20] MEDS: Pantoprazole 40 mg EC Tab PO SCH (09:52)
[2017-04-20] MEDS: Azithromycin 500 MG in Sodium Chloride 0.9% 250 ML IVPB SCH (09:53)
--- NOTE | 2017-04-20 11:12 | CT ---
PROCEDURE: CT Chest with contrast (Pulmonary Angiogram) HISTORY: shortness of breath, chest pain COMPARISON: CT chest from 04/19/2017. TECHNIQUE: Axial computed tomography images were obtained of the chest in the pulmonary arterial phase of enhancement. Coronal and sagittal reformatted images were created and reviewed. Intravenous contrast dose: 100 mL Visipaque 320 Radiation dose: Total exam DLP = 570.85 mGy-cm. This CT exam was performed using one or more of the following dose reduction techniques: Automated exposure control, adjustment of the mA and/or kV according to patient size, and/or use of iterative reconstruction technique. FINDINGS: PULMONARY ARTERIES: There are no filling defects in the pulmonary arteries to suggest acute pulmonary embolus. AORTA: No acute findings. No thoracic aortic aneurysm. LUNGS: Again seen is severe paraseptal emphysema in the lung apices, worse on the right. There is redemonstration of multifocal confluent airspace disease with striated margins in both upper lobes. There are small peripheral nodules with irregular margins in both lungs. PLEURAL SPACES: No pleural effusions or pneumothorax. HEART: The heart is normal in size. There is trace pericardial effusion LYMPH NODES: Again seen are enlarged mediastinal, sub- carinal and hilar lymph nodes with few central calcifications in the right hilar and sub- carinal lymph nodes. BONES, CHEST WALL: Within normal limits for the patient's age. No fracture or destructive lesion OTHER FINDINGS: There is mild bilateral gynecomastia. IMPRESSION: 1. No CTA evidence for acute pulmonary embolism. 2. Multifocal confluent airspace disease in both upper lobes with striated margins, multiple peripheral nodules with irregular margins and mediastinal and hilar lymphadenopathy as seen before. The differential considerations include silicosis, sarcoidosis and other inflammatory/granulomatous diseases. 3. Trace pericardial effusion.
[2017-04-21 07:15] LABS: BASO # 0.1 K/uL (0.0-0.2); BASO % 0.9 % (0.0-2.0); EOS # 0.1 K/uL (0.0-0.7); EOS % 1.1 % (0.0-4.0); HEMOGLOBIN 13.6 g/dL (12.0-18.0); LYMPH # 2.5 K/uL (1.0-4.3); LYMPH % 25.5 % (20.0-40.0); MEAN CELL VOLUME 87.7 fL (80.0-94.0); MEAN CORPUSCULAR HEMOGLOBIN 29.5 pg (27.0-31.0); MEAN CORPUSCULAR HGB CONC 33.7 g/dL (33.0-37.0); MEAN PLATELET VOLUME 8.5 fL (7.2-11.7); MONO # 1.2 K/uL (0.0-0.8); MONO % 11.9 % (0.0-10.0); NEUT % 60.6 % (50.0-75.0); NRBC % 0.1 % (0.0-2.0); RBC 4.61 Mil/uL (4.40-5.90); RED CELL DISTRIBUTION WIDTH 14.1 % (11.5-14.5); WHITE BLOOD COUNT 9.9 K/uL (4.8-10.8)
[2017-04-21 07:55] LABS: ALBUMIN 3.6 g/dL (3.5-5.0); ALT/SGPT 43 U/L (21-72); AST/SGOT 58 U/L (17-59); BLOOD UREA NITROGEN 12 mg/dL (9-20); CALCIUM 8.2 mg/dl (8.6-10.4); GFR AFRICAN-AMERICAN > 60; GFR NON-AFRICAN AMERICAN > 60; MAGNESIUM 1.9 mg/dL (1.6-2.3)
[2017-04-21] MEDS ORDERED: Potassium Chloride 20 mEq ER Tab PO ONE (09:46)
[2017-04-21] MEDS ORDERED: Influenza Vaccine 60 mcg/0.5 mL SYR (4YR UP) IM ONE (10:00)
[2017-04-21] MEDS: Azithromycin 500 MG in Sodium Chloride 0.9% 250 ML IVPB SCH (10:26)
[2017-04-21] MEDS: Pantoprazole 40 mg EC Tab PO SCH (10:26)
--- NOTE | 2017-04-21 12:10 | CP.PCM.PN ---
<Dorina Lindsey - Last Filed: 04/21/17 12:07> Subjective - Date & Time of Evaluation Date of Evaluation: 04/21/17 Time of Evaluation: 12:13 - Subjective Subjective: Progress note for Dr. Luciano Patient seen and examined at bedside. Patient denies any complaints. He states his chest pain is gone and he has no issues. Patient is in a cheerful disposition. Objective - Vital Signs/Intake and Output Vital Signs (last 24 hours): Temp Pulse Resp BP Pulse Ox 98 F 60 20 123/74 97 04/21/17 07:57 04/21/17 07:57 04/21/17 07:57 04/21/17 07:57 04/21/17 07:57 Intake and Output: 04/21/17 04/21/17 06:59 18:59 Intake Total 480 240 Balance 480 240 - Medications Medications: Current Medications Heparin Sodium (Porcine) (Heparin) 5,000 units SC Q8 [facility] Last Admin: 04/21/17 05:50 Dose: 5,000 units Ceftriaxone Sodium 1 gm/ (Sodium Chloride) 100 mls @ 100 mls/hr IVPB Q24H [facility] Last Admin: 04/20/17 13:45 Dose: 100 mls/hr Azithromycin 500 mg/ Sodium (Chloride) 250 mls @ 250 mls/hr IVPB DAILY [facility] Last Admin: 04/21/17 10:26 Dose: 250 mls/hr Ibuprofen (Motrin Tab) 600 mg PO Q6H PRN PRN Reason: Pain, moderate (4-7) Last Admin: 04/20/17 21:48 Dose: 600 mg Pantoprazole Sodium (Protonix Ec Tab) 40 mg PO DAILY [facility] Last Admin: 04/21/17 10:26 Dose: 40 mg Pneumococcal Polyvalent Vaccine (Pneumovax 23 Vaccine) 0.5 ml IM .ONCE ONE Stop: 04/21/17 22:01 - Labs Labs: 04/21/17 07:04 04/21/17 07:04 PT 11.9 SECONDS (9.7-12.2) 04/19/17 01:10 INR 1.1 04/19/17 01:10 APTT 30 SECONDS (21-34) 04/19/17 01:10 - Constitutional Appears: Non-toxic, No Acute Distress - Head Exam Head Exam: NORMAL INSPECTION - Eye Exam Eye Exam: EOMI, Normal appearance - ENT Exam ENT Exam: Mucous Membranes Moist - Neck Exam Neck Exam: Full ROM - Respiratory Exam Respiratory Exam: Decreased Breath Sounds, NORMAL BREATHING PATTERN - Cardiovascular Exam Cardiovascular Exam: REGULAR RHYTHM, +S1, +S2 - GI/Abdominal Exam GI & Abdominal Exam: Soft - Extremities Exam Extremities Exam: Full ROM, Normal Inspection - Neurological Exam Neurological Exam: Alert, Awake, CN II-XII Intact, Oriented x3 - Psychiatric Exam Psychiatric exam: Normal Affect, Normal Mood - Skin Skin Exam: Dry, Intact, Normal Color, Warm Assessment and Plan - Assessment and Plan (Free Text) Assessment: Chest Pain Likely secondary to pneumonia EKG NSR @ 90 bpm Troponin x3 negative CXR: diffuse confluent patchy b/l airspace opacities may represent underlying infiltrate or edema, venous congestion, cardiomegaly Chest CT: b/l upper and lower lung consolidation with irregular borders, spiculated nodules. inflammatory, infectious, and neoplastic etiologies all possible CTA: no evidence for acute PE, multifocal confluent airspace disease in both upper lobes with striated margins, multiple peripheral nodules with irregular margins and mediastinal and hilar lymphadenopathy, trace pericardial effusion Pulm consult Dr. Sharpe, help appreciated Rocephin 1 gm IV daily Azithromycin 500mg ivpb daily Toradol 30 mg IV Q6H prn severe pain D Dimer- 550 CTAngio: no pulmonary embolism, upper lobe disease bilaterally rapid flu: neg grp a strep: negative f/u mycoplasma, legionella HIV: negative blood cultures- no growth after 24 hours f/u sputum cultures- gram positive cocci in chains f/u final read on echo ESR: 40 f/u PPD tomorrow, negative so far 04/21 Leukocytosis, resolving continue antibiotics monitor Prophylactic Measure Heart Healthy Diet Protonix 40 mg PO daily [facility], Heparin 5000 u sc q8h Dorina Eng, DO PGY1 <Cande Luciano V - Last Filed: 04/21/17 15:41> Objective - Vital Signs/Intake and Output Vital Signs (last 24 hours): Temp Pulse Resp BP Pulse Ox 98 F 60 20 123/74 97 04/21/17 07:57 04/21/17 07:57 04/21/17 07:57 04/21/17 07:57 04/21/17 07:57 Intake and Output: 04/21/17 04/21/17 06:59 18:59 Intake Total 480 1070 Balance 480 1070 - Medications Medications: Current Medications Heparin Sodium (Porcine) (Heparin) 5,000 units SC Q8 [facility] Last Admin: 04/21/17 14:04 Dose: 5,000 units Ceftriaxone Sodium 1 gm/ (Sodium Chloride) 100 mls @ 100 mls/hr IVPB Q24H [facility] Last Admin: 04/21/17 14:04 Dose: 100 mls/hr Azithromycin 500 mg/ Sodium (Chloride) 250 mls @ 250 mls/hr IVPB DAILY [facility] Last Admin: 04/21/17 10:26 Dose: 250 mls/hr Ibuprofen (Motrin Tab) 600 mg PO Q6H PRN PRN Reason: Pain, moderate (4-7) Last Admin: 04/20/17 21:48 Dose: 600 mg Pantoprazole Sodium (Protonix Ec Tab) 40 mg PO DAILY [facility] Last Admin: 04/21/17 10:26 Dose: 40 mg Pneumococcal Polyvalent Vaccine (Pneumovax 23 Vaccine) 0.5 ml IM .ONCE ONE Stop: 04/21/17 22:01 Saccharomyces Boulardii (Florastor) 250 mg PO BID [facility] - Labs Labs: 04/21/17 07:04 04/21/17 07:04 PT 11.9 SECONDS (9.7-12.2) 04/19/17 01:10 INR 1.1 04/19/17 01:10 APTT 30 SECONDS (21-34) 04/19/17 01:10 Attending/Attestation - Attestation I have personally seen and examined this patient.: Yes I have fully participated in the care of the patient.: Yes I have reviewed all pertinent clinical information, including history, physical exam and plan: Yes Notes (Text): Patient seen, examined, case discussed with medical equipment technician. Patient admitted for extensive pneumonia. Patient is on IV antibiotics to cover for community acquired pneumonia. Patient has had a prior chest CT completed which has ruled out acute pulmonary embolus. However it does describe both upper and lower lung consolidation with irregular borders spiculated nodules, multifocal confluent airspace disease and multiple peripheral nodules with irregular borders. I discussed case with Dr. Woods, recommends to continue antibiotics patient is clinically improving a repeat CT chest as outpatient and reports patient does not need to be on isolation. Afebrile for 48 hours. White count has normalized the past 2 days well on IV antibiotics. Electrolytes repleted Assessment/plan 1. Community-acquired pneumonia Pulmonary on consult help appreciated HIV negative Influenza negative Group A beta strep antigen negative Chest CT: b/l upper and lower lung consolidation with irregular borders, spiculated nodules. inflammatory, infectious, and neoplastic etiologies all possible CTA: no evidence for acute PE, multifocal confluent airspace disease in both upper lobes with striated margins, multiple peripheral nodules with irregular margins and mediastinal and hilar lymphadenopathy, trace pericardial effusion PPD negative Rocephin 1 g IV piggyback every 24 active since 04/19/2017 Azithromycin 500 mg IV piggyback active since 09/18/2017 Start probiotic floor start to 50 mg by mouth twice a day Discontinue pneumonia vaccination given that patient does have extensive pneumonia. Would recommend upon resolution of pneumonia for pneumonia vaccination has outpatient Promethazine w codein 5ml POq4H PRN cough Mucinex 600mg PO BID 2. Chest pain Likely secondary to every community acquired pneumonia SANTIAGO X3: negative Elevated d-dimer CTA: no evidence for acute PE, multifocal confluent airspace disease in both upper lobes with striated margins, multiple peripheral nodules with irregular margins and mediastinal and hilar lymphadenopathy, trace pericardial effusion Pending official report of echocardiogram 3. Leukocytosis Blood cultures from Apr 19 2017 after 48 hours 2 Afebrile for 48 hours White count has normalized We'll continue IV antibiotics for pneumonia 4. Tobacco cessation we'll provide tobacco sensation We'll start nicotine patch We'll advise patient that smoking amongst many risk factors including but not limited to cancer risk 5. Prophylactic measure Heparin 5000 units subq8H Protonix 40mg PO daily
[2017-04-21] MEDS: Saccharomyces Boulardi 250 mg Cap PO SCH (17:26)
[2017-04-21] MEDS: guaiFENesin 600 mg ER Tab PO SCH (17:26)
[2017-04-21] MEDS ORDERED: Pneumococcal 23-Valent Vaccine IM ONE (22:00)
[2017-04-22] MEDS: Promethazine/Cod 6.25mg-10mg/5ml Syr UD PO PRN ×2 (02:25→20:16)
[2017-04-22 07:32] LABS: BASO # 0.1 K/uL (0.0-0.2); EOS # 0.2 K/uL (0.0-0.7); EOS % 1.7 % (0.0-4.0); HEMOGLOBIN 13.2 g/dL (12.0-18.0); LYMPH # 2.8 K/uL (1.0-4.3); LYMPH % 26.1 % (20.0-40.0); MEAN CELL VOLUME 87.5 fL (80.0-94.0); MEAN CORPUSCULAR HEMOGLOBIN 29.3 pg (27.0-31.0); MEAN CORPUSCULAR HGB CONC 33.5 g/dL (33.0-37.0); MEAN PLATELET VOLUME 8.4 fL (7.2-11.7); MONO # 1.7 K/uL (0.0-0.8); MONO % 15.6 % (0.0-10.0); NEUT # 5.9 K/uL (1.8-7.0); NEUT % 55.6 % (50.0-75.0); NRBC % 0.1 % (0.0-2.0); RBC 4.48 Mil/uL (4.40-5.90); RED CELL DISTRIBUTION WIDTH 13.9 % (11.5-14.5); WHITE BLOOD COUNT 10.7 K/uL (4.8-10.8)
[2017-04-22 08:06] LABS: ALBUMIN 3.5 g/dL (3.5-5.0); ALT/SGPT 56 U/L (21-72); AST/SGOT 45 U/L (17-59); BLOOD UREA NITROGEN 10 mg/dL (9-20); CALCIUM 8.5 mg/dl (8.6-10.4); GFR AFRICAN-AMERICAN > 60; GFR NON-AFRICAN AMERICAN > 60
[2017-04-22] MEDS: Saccharomyces Boulardi 250 mg Cap PO SCH ×2 (10:29→17:42)
[2017-04-22] MEDS: Pantoprazole 40 mg EC Tab PO SCH (10:29)
[2017-04-22] MEDS: guaiFENesin 600 mg ER Tab PO SCH ×2 (10:29→17:42)
[2017-04-22] MEDS: Azithromycin 500 MG in Sodium Chloride 0.9% 250 ML IVPB SCH (10:32)
--- NOTE | 2017-04-22 15:51 | CP.PCM.PN ---
<RosaliaDorina - Last Filed: 04/22/17 17:23> Subjective - Date & Time of Evaluation Date of Evaluation: 04/22/17 Time of Evaluation: 17:22 - Subjective Subjective: Progress note Patient seen and examined at bedside. Patient denies any complaints. He denies chest pain, dizziness, patient requests that his diet be changed because he doesnt eat eggs. Patient has no other complaints at this time Objective - Vital Signs/Intake and Output Vital Signs (last 24 hours): Temp Pulse Resp BP Pulse Ox 98.2 F 82 20 127/70 98 04/22/17 08:00 04/22/17 08:00 04/22/17 08:00 04/22/17 08:00 04/22/17 08:00 Intake and Output: 04/22/17 04/22/17 06:59 18:59 Intake Total 880 830 Balance 880 830 - Medications Medications: Current Medications Guaifenesin (Mucinex La) 600 mg PO BID [facility] Last Admin: 04/22/17 10:29 Dose: 600 mg Heparin Sodium (Porcine) (Heparin) 5,000 units SC Q8 [facility] Last Admin: 04/22/17 13:40 Dose: 5,000 units Ceftriaxone Sodium 1 gm/ (Sodium Chloride) 100 mls @ 100 mls/hr IVPB Q24H [facility] Last Admin: 04/22/17 13:39 Dose: 100 mls/hr Azithromycin 500 mg/ Sodium (Chloride) 250 mls @ 250 mls/hr IVPB DAILY [facility] Last Admin: 04/22/17 10:32 Dose: 250 mls/hr Ibuprofen (Motrin Tab) 600 mg PO Q6H PRN PRN Reason: Pain, moderate (4-7) Last Admin: 04/20/17 21:48 Dose: 600 mg Nicotine (Nicoderm Cq) 1 patch TD DAILY [facility] Last Admin: 04/22/17 10:30 Dose: 1 patch Pantoprazole Sodium (Protonix Ec Tab) 40 mg PO DAILY [facility] Last Admin: 04/22/17 10:29 Dose: 40 mg Promethazine HCl/Codeine (Phenergan/Codeine Oral Syrup) 5 ml PO Q4 PRN PRN Reason: Cough Last Admin: 04/22/17 02:25 Dose: 5 ml Saccharomyces Boulardii (Florastor) 250 mg PO BID [facility] Last Admin: 04/22/17 10:29 Dose: 250 mg - Labs Labs: 04/22/17 07:22 04/22/17 07:22 PT 11.9 SECONDS (9.7-12.2) 04/19/17 01:10 INR 1.1 04/19/17 01:10 APTT 30 SECONDS (21-34) 04/19/17 01:10 - Constitutional Appears: Non-toxic, No Acute Distress - Head Exam Head Exam: NORMAL INSPECTION - Eye Exam Eye Exam: EOMI, Normal appearance - ENT Exam ENT Exam: Mucous Membranes Moist - Neck Exam Neck Exam: Full ROM - Respiratory Exam Respiratory Exam: NORMAL BREATHING PATTERN. absent: Accessory Muscle Use, Respiratory Distress - Cardiovascular Exam Cardiovascular Exam: REGULAR RHYTHM, +S1, +S2 - GI/Abdominal Exam GI & Abdominal Exam: Soft. absent: Tenderness - Extremities Exam Extremities Exam: Full ROM, Normal Inspection. absent: Pedal Edema - Neurological Exam Neurological Exam: Alert, Awake - Psychiatric Exam Psychiatric exam: Normal Affect, Normal Mood - Skin Skin Exam: Dry, Intact, Normal Color, Warm Assessment and Plan - Assessment and Plan (Free Text) Assessment: Pneumonia, ACS ruled out. EKG NSR @ 90 bpm Troponin x3 negative CXR: diffuse confluent patchy b/l airspace opacities may represent underlying infiltrate or edema, venous congestion, cardiomegaly Chest CT: b/l upper and lower lung consolidation with irregular borders, spiculated nodules. inflammatory, infectious, and neoplastic etiologies all possible CTA: no evidence for acute PE, multifocal confluent airspace disease in both upper lobes with striated margins, multiple peripheral nodules with irregular margins and mediastinal and hilar lymphadenopathy, trace pericardial effusion Pulm consult Dr. Sharpe, help appreciated Rocephin 1 gm IV daily Azithromycin 500mg ivpb daily Toradol 30 mg IV Q6H prn severe pain D Dimer- 550 CTAngio: no pulmonary embolism, upper lobe disease bilaterally rapid flu: neg grp a strep: negative f/u mycoplasma, legionella HIV: negative blood cultures- no growth after 24 hours f/u sputum cultures- gram positive cocci in chains f/u final read on echo ESR: 40 negative PPD / Leukocytosis, resolving continue antibiotics monitor Prophylactic Measure Heart Healthy Diet Protonix 40 mg PO daily [facility], Heparin 5000 u sc q8h Dorina Eng, DO PGY1 <Lo Graves - Last Filed: 04/22/17 18:57> Objective - Vital Signs/Intake and Output Vital Signs (last 24 hours): Temp Pulse Resp BP Pulse Ox 98 F 85 20 113/77 99 04/22/17 16:00 04/22/17 16:00 04/22/17 16:00 04/22/17 16:00 04/22/17 16:00 Intake and Output: 04/22/17 04/22/17 06:59 18:59 Intake Total 880 830 Balance 880 830 - Medications Medications: Current Medications Guaifenesin (Mucinex La) 600 mg PO BID [facility] Last Admin: 04/22/17 17:42 Dose: 600 mg Heparin Sodium (Porcine) (Heparin) 5,000 units SC Q8 [facility] Last Admin: 04/22/17 13:40 Dose: 5,000 units Ceftriaxone Sodium 1 gm/ (Sodium Chloride) 100 mls @ 100 mls/hr IVPB Q24H [facility] Last Admin: 04/22/17 13:39 Dose: 100 mls/hr Azithromycin 500 mg/ Sodium (Chloride) 250 mls @ 250 mls/hr IVPB DAILY [facility] Last Admin: 04/22/17 10:32 Dose: 250 mls/hr Ibuprofen (Motrin Tab) 600 mg PO Q6H PRN PRN Reason: Pain, moderate (4-7) Last Admin: 04/20/17 21:48 Dose: 600 mg Nicotine (Nicoderm Cq) 1 patch TD DAILY [facility] Last Admin: 04/22/17 10:30 Dose: 1 patch Pantoprazole Sodium (Protonix Ec Tab) 40 mg PO DAILY [facility] Last Admin: 04/22/17 10:29 Dose: 40 mg Promethazine HCl/Codeine (Phenergan/Codeine Oral Syrup) 5 ml PO Q4 PRN PRN Reason: Cough Last Admin: 04/22/17 02:25 Dose: 5 ml Saccharomyces Boulardii (Florastor) 250 mg PO BID [facility] Last Admin: 04/22/17 17:42 Dose: 250 mg - Labs Labs: 04/22/17 07:22 04/22/17 07:22 PT 11.9 SECONDS (9.7-12.2) 04/19/17 01:10 INR 1.1 04/19/17 01:10 APTT 30 SECONDS (21-34) 04/19/17 01:10 Attending/Attestation - Attestation I have personally seen and examined this patient.: Yes I have fully participated in the care of the patient.: Yes I have reviewed all pertinent clinical information, including history, physical exam and plan: Yes
--- NOTE | 2017-04-22 23:29 | CARD ---
APPROVED REPORT EXAM: Two-dimensional and M-mode echocardiogram with Doppler and color Doppler. Other Information Quality : GoodRhythm : INDICATION Pericarditis 2D DIMENSIONS IVSd1.0 (0.7-1.1cm)LVDd5.5 (3.9-5.9cm) PWd0.9 (0.7-1.1cm)LVDs3.0 (2.5-4.0cm) FS (%) 44.6 %LVEF (%)75.4 (>50%) M-Mode DIMENSIONS Left Atrium (MM)4.17 (2.5-4.0cm)Aortic Root3.64 (2.2-3.7cm) Aortic Cusp Exc.2.78 (1.5-2.0cm) Mitral Valve MV E Dnqnehtv790.3cm/sMV A Rnllgsmk66.3cm/sE/A ratio1.5 TDI E/Lateral E'0.0E/Medial E'0.0 Tricuspid Valve TR Peak Vftgibgk819ic/sTR Peak Gr.96ikQkPVLW91mgSl LEFT VENTRICLE The left ventricle is normal size. There is normal left ventricular wall thickness. The left ventricular function is normal. The left ventricular ejection fraction is within the normal range. No regional wall motion abnormalities noted. The left ventricular diastolic function is normal. No left ventricle thrombus noted on this study. There is no ventricular septal defect visualized. There is no left ventricular aneurysm. There is no mass noted in the left ventricle. RIGHT VENTRICLE The right ventricle is normal size. There is normal right ventricular wall thickness. The right ventricular systolic function is normal. ATRIA The left atrium is borderline dilated. The right atrium size is normal. The interatrial septum is intact with no evidence for an atrial septal defect. AORTIC VALVE The aortic valve is normal in structure and function. No aortic regurgitation is present. There is no aortic valvular stenosis. There is no aortic valvular vegetation. MITRAL VALVE The mitral valve is normal in structure and function. There is no evidence of mitral valve prolapse. There is no mitral valve stenosis. There is no mitral valve regurgitation noted. TRICUSPID VALVE The tricuspid valve is normal in structure and function. There is mild tricuspid regurgitation. There is no tricuspid valve prolapse or vegetation. There is no tricuspid valve stenosis. PULMONIC VALVE The pulmonary valve is normal in structure and function. There is mild pulmonic valvular regurgitation. There is no pulmonic valvular stenosis. GREAT VESSELS The aortic root is normal in size. The ascending aorta is normal in size. The pulmonary artery is normal. The IVC is normal in size and collapses >50% with inspiration. PERICARDIAL EFFUSION The pericardium appears normal. There is no pleural effusion. <Conclusion> The left ventricular ejection fraction is within the normal range. The left ventricular function is normal. The left ventricular diastolic function is normal. The left atrium is borderline dilated. There is mild tricuspid regurgitation. There is mild pulmonic valvular regurgitation.
--- NOTE | 2017-04-23 05:38 | CARD ---
APPROVED REPORT EKG Measurement Heart [id number] CT 190P47 [id number] <Conclusion> Normal sinus rhythm Nonspecific ST abnormality Abnormal ECG
[2017-04-23 06:41] LABS: BASO # 0.1 K/uL (0.0-0.2); BASO % 1.2 % (0.0-2.0); EOS # 0.2 K/uL (0.0-0.7); EOS % 2.2 % (0.0-4.0); HEMOGLOBIN 13.3 g/dL (12.0-18.0); LYMPH # 2.4 K/uL (1.0-4.3); LYMPH % 26.3 % (20.0-40.0); MEAN CELL VOLUME 86.8 fL (80.0-94.0); MEAN CORPUSCULAR HEMOGLOBIN 29.3 pg (27.0-31.0); MEAN CORPUSCULAR HGB CONC 33.8 g/dL (33.0-37.0); MEAN PLATELET VOLUME 7.9 fL (7.2-11.7); MONO # 1.4 K/uL (0.0-0.8); MONO % 15.6 % (0.0-10.0); NEUT % 54.7 % (50.0-75.0); RBC 4.55 Mil/uL (4.40-5.90); RED CELL DISTRIBUTION WIDTH 13.8 % (11.5-14.5); WHITE BLOOD COUNT 9.2 K/uL (4.8-10.8)
[2017-04-23 06:53] LABS: ALB/GLOB RATIO 0.9 (1.0-2.1); ALBUMIN 3.5 g/dL (3.5-5.0); ALT/SGPT 58 U/L (21-72); AST/SGOT 50 U/L (17-59); BLOOD UREA NITROGEN 10 mg/dL (9-20); CALCIUM 8.7 mg/dl (8.6-10.4); GFR AFRICAN-AMERICAN > 60; GFR NON-AFRICAN AMERICAN > 60
--- NOTE | 2017-04-23 07:21 | CP.PCM.PN ---
Objective - Vital Signs/Intake and Output Vital Signs (last 24 hours): Temp Pulse Resp BP Pulse Ox 98.8 F 84 20 123/73 95 04/23/17 00:00 04/23/17 00:00 04/23/17 00:00 04/23/17 00:00 04/23/17 00:00 Intake and Output: 04/23/17 04/23/17 06:59 18:59 Intake Total 480 Balance 480 - Medications Medications: Current Medications Guaifenesin (Mucinex La) 600 mg PO BID [facility] Last Admin: 04/22/17 17:42 Dose: 600 mg Heparin Sodium (Porcine) (Heparin) 5,000 units SC Q8 [facility] Last Admin: 04/23/17 05:22 Dose: 5,000 units Ceftriaxone Sodium 1 gm/ (Sodium Chloride) 100 mls @ 100 mls/hr IVPB Q24H [facility] Last Admin: 04/22/17 13:39 Dose: 100 mls/hr Azithromycin 500 mg/ Sodium (Chloride) 250 mls @ 250 mls/hr IVPB DAILY [facility] Last Admin: 04/22/17 10:32 Dose: 250 mls/hr Ibuprofen (Motrin Tab) 600 mg PO Q6H PRN PRN Reason: Pain, moderate (4-7) Last Admin: 04/20/17 21:48 Dose: 600 mg Nicotine (Nicoderm Cq) 1 patch TD DAILY [facility] Last Admin: 04/22/17 10:30 Dose: 1 patch Pantoprazole Sodium (Protonix Ec Tab) 40 mg PO DAILY [facility] Last Admin: 04/22/17 10:29 Dose: 40 mg Promethazine HCl/Codeine (Phenergan/Codeine Oral Syrup) 5 ml PO Q4 PRN PRN Reason: Cough Last Admin: 04/22/17 20:16 Dose: 5 ml Saccharomyces Boulardii (Florastor) 250 mg PO BID [facility] Last Admin: 04/22/17 17:42 Dose: 250 mg - Labs Labs: 04/23/17 06:27 04/23/17 06:27 PT 11.9 SECONDS (9.7-12.2) 04/19/17 01:10 INR 1.1 04/19/17 01:10 APTT 30 SECONDS (21-34) 04/19/17 01:10
--- NOTE | 2017-04-23 07:48 | CON ---
DATE: 04/21/2017 HISTORY OF PRESENT ILLNESS: Mr. Berman chief complaint weakness, fatigue, tiredness, shortness of breath, cough, fever. He was found to have pneumonia upon admission. Patient is a smoker. PHYSICAL EXAMINATION: GENERAL: The patient is awake, alert, oriented. VITAL SIGNS: Temperature 98, pulse 90. HEENT: Within normal limits. NECK: Supple. CHEST: Symmetrical. HEART: Regular. ABDOMEN: Soft. EXTREMITIES: No edema. IMPRESSION: Pneumonia. PLAN: Patient to get bedrest, supportive care, antibiotic. Carlos Sharpe MD
[2017-04-23 08:35] VITALS: BP 120/79; PULSE 89; TEMP 98; O2SAT 97
[2017-04-23] MEDS: Saccharomyces Boulardi 250 mg Cap PO SCH (09:28)
[2017-04-23] MEDS: Azithromycin 500 MG in Sodium Chloride 0.9% 250 ML IVPB SCH (09:30)
[2017-04-23] MEDS: Pantoprazole 40 mg EC Tab PO SCH (09:30)
[2017-04-23] MEDS: guaiFENesin 600 mg ER Tab PO SCH (09:34)
--- NOTE | 2017-04-23 11:13 | CP.PCM.DIS ---
Provider - Provider Date of Admission: 04/19/17 04:57 Attending physician: Lo Graves MD Time Spent in preparation of Discharge (in minutes): 40 Hospital Course - Lab Results Lab Results: Micro Results 04/19/17 02:23 Blood Blood Culture - Preliminary NO GROWTH AFTER 4 DAYS 04/19/17 02:23 Blood Blood Culture - Preliminary NO GROWTH AFTER 4 DAYS 04/19/17 10:01 Sputum Gram Stain - Final 04/19/17 10:01 Sputum Sputum Culture - Final NORMAL SAPROPHYTIC VENUS 04/20/17 10:31 Throat Group A Strep Throat Culture - Final NO BETA STREP GROUP A ISOLATED. Most Recent Lab Values WBC 9.2 K/uL (4.8-10.8) 04/23/17 06:27 RBC 4.55 Mil/uL (4.40-5.90) 04/23/17 06:27 Hgb 13.3 g/dL (12.0-18.0) 04/23/17 06:27 Hct 39.4 % (35.0-51.0) 04/23/17 06:27 MCV 86.8 fL (80.0-94.0) 04/23/17 06:27 MCH 29.3 pg (27.0-31.0) 04/23/17 06:27 MCHC 33.8 g/dL (33.0-37.0) 04/23/17 06:27 RDW 13.8 % (11.5-14.5) 04/23/17 06:27 Plt Count 401 K/uL (130-400) H 04/23/17 06:27 MPV 7.9 fL (7.2-11.7) 04/23/17 06:27 Neut % (Auto) 54.7 % (50.0-75.0) 04/23/17 06:27 Lymph % (Auto) 26.3 % (20.0-40.0) 04/23/17 06:27 [place] % (Auto) 15.6 % (0.0-10.0) H 04/23/17 06:27 Eos % (Auto) 2.2 % (0.0-4.0) 04/23/17 06:27 Baso % (Auto) 1.2 % (0.0-2.0) 04/23/17 06:27 Neut # 5.0 K/uL (1.8-7.0) 04/23/17 06:27 Lymph # 2.4 K/uL (1.0-4.3) 04/23/17 06:27 [place] # 1.4 K/uL (0.0-0.8) H 04/23/17 06:27 Eos # 0.2 K/uL (0.0-0.7) 04/23/17 06:27 Baso # 0.1 K/uL (0.0-0.2) 04/23/17 06:27 ESR 40 mm/hr (0-15) H 04/19/17 15:57 PT 11.9 SECONDS (9.7-12.2) 04/19/17 01:10 INR 1.1 04/19/17 01:10 APTT 30 SECONDS (21-34) 04/19/17 01:10 D-Dimer, Quantitative 520 ng/mlDDU (0-243) H 04/20/17 11:10 Sodium 134 mmol/L (132-148) 04/23/17 06:27 Potassium 4.1 mmol/L (3.6-5.2) 04/23/17 06:27 Chloride 99 mmol/L (98-107) 04/23/17 06:27 Carbon Dioxide 28 mmol/L (22-30) 04/23/17 06:27 Anion Gap 12 (10-20) 04/23/17 06:27 BUN 10 mg/dL (9-20) 04/23/17 06:27 Creatinine 1.0 mg/dL (0.8-1.5) 04/23/17 06:27 Est GFR ( Amer) > 60 04/23/17 06:27 Est GFR (Non-Af Amer) > 60 04/23/17 06:27 Random Glucose 92 mg/dL (75-110) 04/23/17 06:27 Calcium 8.7 mg/dl (8.6-10.4) 04/23/17 06:27 Phosphorus 4.8 mg/dL (2.5-4.5) H 04/23/17 06:27 Magnesium 2.0 mg/dL (1.6-2.3) 04/23/17 06:27 Total Bilirubin 0.3 mg/dL (0.2-1.3) 04/23/17 06:27 AST 50 U/L (17-59) 04/23/17 06:27 ALT 58 U/L (21-72) 04/23/17 06:27 Alkaline Phosphatase 81 U/L (38-126) 04/23/17 06:27 Total Creatine Kinase 180 U/L (55-170) H 04/19/17 21:09 CK-MB (Mass) 1.71 ng/mL (0.0-3.38) 04/19/17 21:09 Troponin I < 0.0120 ng/mL (0.00-0.120) 04/19/17 21:09 C-React Prot High Sens > 15.00 mg/L (1.00-3.00) H 04/23/17 06:27 Total Protein 7.2 g/dL (6.3-8.3) 04/23/17 06:27 Albumin 3.5 g/dL (3.5-5.0) 04/23/17 06:27 Globulin 3.8 gm/dL (2.2-3.9) 04/23/17 06:27 Albumin/Globulin Ratio 0.9 (1.0-2.1) L 04/23/17 06:27 Urine Color Yellow (YELLOW) 04/19/17 01:10 Urine Clarity Clear (Clear) 04/19/17 01:10 Urine pH 5.0 (5.0-8.0) 04/19/17 01:10 Ur Specific [place] 1.017 (1.003-1.030) 04/19/17 01:10 Urine Protein Negative mg/dL (NEGATIVE) 04/19/17 01:10 Urine Glucose (UA) Normal mg/dL (Normal) 04/19/17 01:10 Urine Ketones Negative mg/dL (NEGATIVE) 04/19/17 01:10 Urine Blood Negative (NEGATIVE) 04/19/17 01:10 Urine Nitrate Negative (NEGATIVE) 04/19/17 01:10 Urine Bilirubin Negative (NEGATIVE) 04/19/17 01:10 Urine Urobilinogen Normal mg/dL (0.2-1.0) 04/19/17 01:10 Ur Leukocyte Esterase Neg Leonard/uL (Negative) 04/19/17 01:10 Urine WBC (Auto) 1 /hpf (0-5) 04/19/17 01:10 Urine RBC (Auto) < 1 /hpf (0-3) 04/19/17 01:10 HIV 1&2 Antibody Screen Negative (NEGATIVE) 04/20/17 11:10 Influenza Typ A,B (EIA) Negative for flu a/b (NEGATIVE) 04/20/17 10:31 Grp A Beta Strep Ag Negative (NEGATIVE) 04/20/17 10:31 - Hospital Course Hospital Course: This is a 36 year old male with PMHx pneumonia who presents to the ED complaining of chest pain. This began yesterday around 1 PM. This was a sudden onset of stabbing type pain located in the mid sternal region that radiates directly through to the back. Patient states that this is worsened with breathing. Drinking hot substances like tea seems to ease the pain. It is not related to meals. When asked about relation to positioning, the patient states that when he experiences the pain, it feels a little better if he lays down. Patient admits associated diaphoresis and left arm numbness. Denies palpitations. Patient was diagnosed with pneumonia 2 years ago. On that hospital admission, he received a stress test which he was told was normal. Of note, patient was sick during the past 2 weeks with cough and sputum which has improved since then with over the counter medications. His was also sick recently as well. PMHx: Pneumonia 2 years ago PSHx Ventral hernia repair in 2011, left eye surgery at age 9 due to trauma Allergies: NKDA Social: Started smoking 3 years ago has cut down to 2-3 cigarettes per day. Drinks about a pint of cognac every week on Fridays. Denies drug use. 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 Lives with . Family Hx: Father in his 50s due to pneumonia. Mother had CAD with 2 surgeries in her old age. PMD:denies Home meds: denies Hospital Course: Patient was admitted for chest pain. EKG was NSR. Troponin was negative x3. Ddimer was 550. Rapid flu was negative. Group A strep was negative. Blood culture and sputum culture were negative. Patient was found to have pneumonia. City Clerk Dr. Sharpe was consulted. Patient was started on Rocephin and Azithromycin. Imaging: Ches xray: diffuse confluent patchy b/l airspace opacities may represent underlying infiltrate or edema, venous congestion, cardiomegaly Chest CT: b/l upper and lower lung consolidation with irregular borders, spiculated nodules. inflammatory, infectious, and neoplastic etiologies all possible CTA: no evidence for acute PE, multifocal confluent airspace disease in both upper lobes with striated margins, multiple peripheral nodules with irregular margins and mediastinal and hilar lymphadenopathy, trace pericardial effusion CTAngio: no pulmonary embolism, upper lobe disease bilaterally ECHO: EF 75.4%; left ventricular function is normal; left ventricular diastolic function is normal; the left atrium is borderline dilated; there is mild tricuspid regurgitation; there is mild pulmonic valvular regurgigation. Patient was seen and examined at bedside in the AM. Patient stated his cough had improved significantly. Patient denied shortness of breath, chest pain, nausea, fever, vomiting, diarrhea or constipation. Discussed with patient the importance to follow up at the [facility] clinic and he stated he will make an appointment before leaving the hospital. Patient's was at bedside and stated she will also make sure. Discussed with patient that he will need a follow up chest ct in 3-6 months. Patient stable for discharge per Dr. Graves. Patient to start new medication: Augmentin 500mg/125mg every 12 hours for 7 days. Patient can take Mucinex over the counter as needed for cough suppression. Patient to follow up in the [facility]: Please call to make an appointment: [phone] Recommendation for patient to have a repeat chest ct in 3-6 months If patient symptoms worsen patient to return to the Emergency Room. This is a summary of patient's hospital course please refer to EMR for complete hospital course. Discharge Exam - Head Exam Head Exam: NORMAL INSPECTION - Eye Exam Eye Exam: EOMI, Normal appearance - ENT Exam ENT Exam: Mucous Membranes Moist - Respiratory Exam Respiratory Exam: Clear to PA & Lateral, NORMAL BREATHING PATTERN - Cardiovascular Exam Cardiovascular Exam: REGULAR RHYTHM, +S1, +S2 - GI/Abdominal Exam GI & Abdominal Exam: Normal Bowel Sounds, Soft. absent: Tenderness - Extremities Exam Extremities exam: normal inspection - Neurological Exam Neurological exam: Alert, Oriented x3 - Psychiatric Exam Psychiatric exam: Normal Affect, Normal Mood - Skin Skin Exam: Normal Color, Warm Discharge Plan - Discharge Medications Prescriptions: Amoxicillin/Clavulanate [Augmentin 500 MG-125 MG] 1 tab PO Q12 7 Days #14 tab - Follow Up Plan Condition: GUARDED Disposition: HOME/ ROUTINE Instructions: Amoxicillin/Clavulanate Potassium (By mouth), Pneumonia (DC) Referrals: Leta Avalos MD [Staff Provider] -
[2017-04-23] MEDS ORDERED: Pneumococcal 23-Valent Vaccine IM ONE (11:58)
[2017-04-23] MEDS ORDERED: Influenza Vaccine 60 mcg/0.5 mL SYR (4YR UP) IM ONE (11:58)
== END 2017-04-23 12:30 | disposition home or self-care (01) | DRG 89 ==
LOC: C.ER 23:58 → C.9E 04-19 04:57 → C.3T 04-19 18:44
PROVIDERS: ADMIT Internal Medicine; ATTEND Internal Medicine
DX: J18.9 Pneumonia, unspecified organism (principal); R07.81 Pleurodynia; I10 Essential (primary) hypertension; I07.1 Rheumatic tricuspid insufficiency; R79.1 Abnormal coagulation profile; F17.210 Nicotine dependence, cigarettes, uncomplicated; Z87.01 Personal history of pneumonia (recurrent)

== ENCOUNTER 2017-06-06 03:54 | Emergency (ER) | payer SELFPAY ==
--- NOTE | 2017-06-06 05:54 | C.PDOC ---
History Of Present Illness 36 year old male presents to the ER with a complaint of pain to the left lower rib cage area since yesterday that worsens with movement or breathing. Patient was diagnosed with pneumonia in April and was admitted to the hospital, he completed his treatment course with no complications. Denies cough, fever, or SOB. Time Seen by Provider: 06/06/17 04:07 Chief Complaint (Nursing): Abdominal Pain History Per: Patient History/Exam Limitations: no limitations Onset/Duration Of Symptoms: Days Current Symptoms Are (Timing): Still Present Location Of Pain/Discomfort: Other (Left lower ribs) Radiation Of Pain To:: None Quality Of Discomfort: Unable To Describe Associated Symptoms: denies: Fever, Other (Cough, SOB) Exacerbating Factors: Movement, Deep Breaths Alleviating Factors: None Recent travel outside of the [place]: No Past Medical History Reviewed: Historical Data, Nursing Documentation, Vital Signs Vital Signs: Last Vital Signs Temp 97.8 F 06/06/17 06:41 Pulse 74 06/06/17 06:41 Resp 18 06/06/17 06:41 BP 112/72 06/06/17 06:41 Pulse Ox 96 06/06/17 06:41 - Medical History PMH: Asthma, HTN Family History: States: Unknown Family Hx - Social History Hx Alcohol Use: Yes Hx Substance Use: No - Immunization History Hx Tetanus Toxoid Vaccination: No Hx Influenza Vaccination: No Hx Pneumococcal Vaccination: No Review Of Systems Constitutional: Negative for: Fever, Chills Respiratory: Negative for: Cough, Shortness of Breath Gastrointestinal: Negative for: Abdominal Pain Musculoskeletal: Positive for: Other (Left lower rib cage pain) Physical Exam - Physical Exam Appears: Non-toxic, No Acute Distress Skin: Normal Color, Warm, Dry Head: Atraumatic, Normacephalic Eye(s): bilateral: Normal Inspection Chest: Symmetrical, Tenderness (To left lower rib area. No swelling, crepitus, or ecchymosis) Cardiovascular: Rhythm Regular Respiratory: Normal Breath Sounds, No Rales, No Rhonchi, No Wheezing Neurological/Psych: Oriented x3, Normal Speech ED Course And Treatment O2 Sat by Pulse Oximetry: 95 (room air) Pulse Ox Interpretation: Normal - Radiology CXR: Interpreted by Me, Viewed By Me CXR Interpretation: Yes: Other (Chronic lung changes. No effusions.). No: Infiltrates Progress Note: CXR ordered, results were negative. Motrin administered for pain. Patient is sleeping comfortably in the stretcher in no acute distress, vitals are stable, will discharge home with instructions to follow up with PMD. 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 - Scribe Statement The provider has reviewed the documentation as recorded by the Scribcathy Jarvis All medical record entries made by the Teraibcathy were at my direction and personally dictated by me. I have reviewed the chart and agree that the record accurately reflects my personal performance of the history, physical exam, medical decision making, and the department course for this patient. I have also personally directed, reviewed, and agree with the discharge instructions and disposition.
[2017-06-06 06:43] VITALS: BP 112/72; PULSE 74; RESP 18; TEMP 97.8
[2017-06-06 06:47] VITALS: O2SAT 95
--- NOTE | 2017-06-06 10:20 | RAD ---
HISTORY: COMPARISON: CTA chest from 04/20/2017 TECHNIQUE: Chest PA and lateral FINDINGS: LINES AND TUBES: None. LUNG AND PLEURA: The the lungs are well inflated. Again seen are fibrotic changes in both upper lobes and scattered nodules in both lungs. No focal consolidation. HEART AND MEDIASTINUM: The heart is not enlarged. The hilar and mediastinal contours are stable. SKELETAL STRUCTURES: The bony structures are within normal limits for the patient's age. VISUALIZED UPPER ABDOMEN: Normal. OTHER FINDINGS: None. IMPRESSION: Bilateral upper lobe fibrosis and scattered nodules in both lungs without significant interval change. The differential considerations include silicosis, sarcoidosis and other inflammatory/ granulomatous disease. Clinical correlation and follow-up is advised.
== END 2017-06-06 06:55 | disposition home or self-care (01) ==
LOC: C.ER 03:54
DX: M94.0 Chondrocostal junction syndrome [Tietze] (principal); I10 Essential (primary) hypertension